=== PATIENT | female | born 1970 | race Caucasian/White ===

== ENCOUNTER 2017-11-10 09:14 | Emergency (ER) | payer MEDICAID ==
[~2017-11-10 09:14] MED LIST: NAPR250T57 PO
[2017-11-10 09:22] VITALS: BP 132/79; PULSE 89; RESP 17; TEMP 98.6; O2SAT 97
[2017-11-10 10:20] LABS: BILIRUBIN, URINE NEG (NEG); BLOOD, URINE SMALL (NEG); GLUCOSE,URINE NEG (NEG); KETONE, URINE NEG (NEG); NITRITE,URINE NEG (NEG); SQUAMOUS EPITHELIAL CELL URINE <1 /hpf (0-5); URINE COLOR YELLOW (YELLW/STRAW); URINE LEUKOCYTE ESTERASE NEG (NEG)
--- NOTE | 2017-11-10 12:10 | PD ---
HPI Chief Complaint: Complaint Time Seen by Provider: 11:17 Travel History International Travel<30 days: No Contact w/Intl Traveler<30days: No Traveled to known affect area: No History of Present Illness HPI 47-year-old female came to the emergency room with history of multiple complaints including cough, sore throat, nausea, body aches, chills, dysuria since yesterday. Patient says that she has been taking her temperature subjectively. She gets these feeling of cold followed by hard and intense sweating. She has been taking daily NyQuil but not helping. No known sick contacts. No history of vomiting or diarrhea. Her vital signs were stable. Patient also said that she wanted a work note. No aggravating or relieving symptoms. [facility] Past Medical History Narrative Medical List of her past medical, surgical, social and family history is reviewed from the nursing note. Diabetes: Yes (GESTATIONAL) Diminished Hearing: No Immunizations Current: Yes ?: Not : 4 Para: 4 Past Surgical History Section: Yes (X 1) Gynecologic Surgery: Yes () Social History Alcohol Use: No Tobacco Use: No Substance Use: No Allergies-Medications (Allergen,Severity, Reaction): Coded Allergies: No Known Allergies (Unverified Adverse Reaction, Unknown, 11/10/17) Comments No known drug allergies. Reported Meds & Prescriptions Reported Meds & Active Scripts Active No Active Prescriptions or Reported Medications Narrative Medication List of her home medications reviewed from the nursing note Review of Systems Except as stated in HPI: all other systems reviewed are Neg General / Constitutional: Positive: Fever, Chills HENT: Positive: Sore Throat Gastrointestinal: Positive: Nausea Musculoskeletal: Positive: Myalgias Physical Exam Narrative GENERAL: Awake, alert, no obvious distress SKIN: Focused skin assessment warm/dry. HEAD: Atraumatic. Normocephalic. EYES: Pupils equal and round. No scleral icterus. No injection or drainage. ENT: No nasal bleeding or discharge. Mucous membranes pink and moist. Posterior pharynx slightly erythematous without exudate NECK: Trachea midline. No JVD. CARDIOVASCULAR: Regular rate and rhythm. No murmur appreciated. RESPIRATORY: No accessory muscle use. Clear to auscultation. Breath sounds equal bilaterally. GASTROINTESTINAL: Abdomen soft, non-tender, nondistended. Hepatic and splenic margins not palpable. MUSCULOSKELETAL: No obvious deformities. No clubbing. No cyanosis. No edema. NEUROLOGICAL: Awake and alert. No obvious cranial nerve deficits. Motor grossly within normal limits. Normal speech. PSYCHIATRIC: Appropriate mood and affect; insight and judgment normal. Data Data Last Documented VS Vital Signs Date Time Temp Pulse Resp B/P (MAP) Pulse Ox O2 Delivery O2 Flow Rate FiO2 11/10/17 13:45 20 11/10/17 09:22 98.6 89 132/79 (96) 97 Orders Orders Urinalysis - C+S If Indicated (11/10/17 09:26) Ed Urine Pregnancytest Poc (11/10/17 09:26) Group A Rapid Strep Screen (11/10/17 12:03) Influenzae A/B Antigen (11/10/17 12:03) Ibuprofen (Motrin) (11/10/17 12:15) Strep Culture (Group A) (11/10/17 12:45) Ed Discharge Order (11/10/17 13:37) Labs Laboratory Tests Test 11/10/17 09:30 Urine Color YELLOW Urine Turbidity CLEAR Urine pH 6.0 Urine Specific [place] 1.005 Urine Protein NEG mg/dL Urine Glucose (UA) NEG mg/dL Urine Ketones NEG mg/dL Urine Occult Blood SMALL Urine Nitrite NEG Urine Bilirubin NEG Urine Urobilinogen LESS THAN 2 mg/dL Urine Leukocyte Esterase NEG Urine RBC LESS THAN 1 /hpf Urine WBC LESS THAN 1 /hpf Urine Squamous Epithelial Cells <1 /hpf Microscopic Urinalysis Comment CULT NOT INDICATED MDM Medical Decision Making Medical Screen Exam Complete: Yes Emergency Medical Condition: Yes Medical Record Reviewed: Yes Differential Diagnosis Strep throat, influenza, viral illness Narrative Course 12:10 PM patient is getting Motrin. Awaiting for rapid strep and influenza. She will be discharged home eventually. Procedures EKG Prior to Arrival: No Diagnosis Primary Impression: Viral illness Departure Forms: Tests/Procedures, Work Release Enter return to work date: Nov 12, 2017 Additional Instructions: Take ibuprofen/Motrin/Tylenol/Advil for your aches and other symptoms. These medications available [id number]. Drink lots of fluid for hydration. Return to ER if condition worsens or any other new concerns. Med/Other Pt SpecificInfo: No Change to Meds Scripts No Active Prescriptions or Reported Meds Disposition: 01 DISCHARGE HOME Condition: Stable Raheem Gasca MD Nov 10, 2017 12:10
[2017-11-10] MEDS ORDERED: IBUPROFEN 600 MG TAB PO ONE (12:15)
[2017-11-10 13:45] VITALS: RESP 20
== END 2017-11-10 14:15 | disposition home or self-care (01) ==
LOC: NEPD 09:14
DX: B34.9 Viral infection, unspecified (principal); J02.9 Acute pharyngitis, unspecified; R11.0 Nausea; R30.0 Dysuria; M79.1 Myalgia; R50.9 Fever, unspecified
CPT/HCPCS: 81001; 84703; 87081; 87804; 87880; 99283